=== PATIENT | male | born 1995 | race African-American/Black ===

== ENCOUNTER 2017-06-22 23:20 | Emergency (ER) | payer OTHER ==
[~2017-06-22] VITALS: Ht 188 cm; Wt 72.6 kg
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
== END 2017-06-23 01:29 | disposition home or self-care (01) ==
LOC: CED 23:20 → CFTX 23:20
DX: S33.5XXA Sprain of ligaments of lumbar spine, initial encounter (principal); S80.02XA Contusion of left knee, initial encounter; S80.01XA Contusion of right knee, initial encounter; V49.9XXA Car occupant (driver) (passenger) injured in unspecified traffic accident, initial encounter; Y93.89 Activity, other specified; Y92.410 Unspecified street and highway as the place of occurrence of the external cause
CPT/HCPCS: 72100; 73562; 99284